=== PATIENT | female | born 1980 | race Caucasian/White ===

== ENCOUNTER 2016-11-30 12:28 | Outpatient (CLI) | payer MEDICARE, MEDICAID | END 2016-11-30 12:29 | disposition home or self-care (01) | DX: Z01.812 Encounter for preprocedural laboratory examination (principal) ==

== ENCOUNTER 2016-12-02 09:04 | Day surgery (SDC) | payer MEDICARE, MEDICAID ==
--- NOTE | 2016-11-30 15:13 | PREOP HISTORY & PHYSICAL ---
DATE OF ADMISSION/SURGERY: 12/02/2016 IDENTIFICATION: A 36-year-old G2, P2-0-0-2. HISTORY OF PRESENT ILLNESS: The patient presents today to [facility] for her scheduled preoperative visit. The patient is anticipated to have a 12/02/2016 laparoscopic bilateral salpingectomy, as well as removal of her Nexplanon implant. I discussed with the patient the risks, benefits, alternatives, indications, and expectations of the aforementioned procedures. Included in the risks are hemorrhage, infection, inadvertent laceration, cauterization or ligation of adjacent intestines, bladder, and ureters. Furthermore, with this procedure she will be permanently sterilized. This procedure is not meant to be reversible. The patient understands that she has different options for control including control pill, Ortho Evra, and IUD. Finally, the patient understands that though this procedure makes her unable to have children, she will still need to use protection as she will be able to contract sexually transmitted diseases ,as this does not protect her against that. After all of her questions were answered to her satisfaction, she verbalizes her desire to proceed with surgery. Consent forms have been signed. The patient is currently doing well and denies any nausea, vomiting, fevers, chills, diarrhea or constipation. She recently got over an upper respiratory infection approximately 3-4 weeks ago. Today, she is accompanied by her good friend, Connie, with whom she lives with. The patient appears to be her surrogate mother. Connie has adopted 1 of the patient's children. PAST MEDICAL HISTORY 1. Bipolar disease. 2. Morbid obesity. 3. Asthma. 4. Headaches. PAST SURGICAL HISTORY 1. In 2007, laparoscopic cholecystectomy. 2. Left shoulder surgery. ALLERGIES: NO KNOWN DRUG ALLERGIES. MEDICATIONS 1. [place] 300 mg, 2 tabs p.o. q.a.m. and 1 tab p.o. at bedtime. 2. Omeprazole 40 mg p.r.n. 3. Propranolol 40 mg 1 tab p.o. b.i.d. p.r.n. headaches. 4. Naproxen 500 mg 1 tab p.o. p.r.n. headaches. SOCIAL HISTORY: The patient lives with Connie and Connie's and adopted child. PAST OBSTETRICAL HISTORY: Two term spontaneous vaginal deliveries. PAST GYNECOLOGICAL HISTORY: All Pap smears have been within normal limits. She denies any sexually transmitted diseases. FAMILY HISTORY: Her mother of breast cancer when the patient was 12 years of age. REVIEW OF SYSTEMS: Negative unless otherwise stated. OBJECTIVE VITAL SIGNS: Weight is 297 pounds, height is 65-1/2 inches, BMI 48.7, blood pressure 142/82. GENERAL: The patient is an obese female in no apparent distress. She is alert and oriented x3. The patient seems almost child-like, but she is very pleasant. HEENT: Within normal limits. She does wear glasses. She has poor dentition. CARDIOVASCULAR: Rate is regular, no murmurs or rubs. PULMONARY: Lungs clear to auscultation bilaterally. ABDOMEN: Obese but soft and nontender. No masses, rebound, rigidity, or guarding. DERM: The patient has multiple healing skin lesions, which look like she has been picking in the areas of folliculitis that she may have. ASSESSMENT 1. A 36-year-old G2, P2-0-0-2. 2. Desires permanent sterilization. 3. Desires removal of her Nexplanon subdermal contraception. PLAN 1. Get a beta hCG right now to confirm a nonpregnancy state. 2. I have counseled her to take 1 gram of Tylenol 2 hours prior to her procedure with a sip of water. She has also been instructed to take her lithium at that time. 3. Anticipate giving her Celebrex in ambulatory surgery just prior to the procedure, in order to minimize postoperative pain. 4. The patient has been given a prescription for ibuprofen, as well as Vicodin for postoperative pain control. 5. The patient is to see me at [facility] in 2 weeks for routine postoperative visit. JOB #: [id number] EXT JOB #:[id number] MIGUE
[2016-12-02] MEDS: LACTATED RINGERS 1,000 ML IV ONE (09:15)
[2016-12-02 09:31] LABS: HCG UR QUAL NEGATIVE
[2016-12-02] MEDS ORDERED: MIDAZOLAM 2 MG/2 ML VIAL IVP ONE (10:15)
[2016-12-02] MEDS ORDERED: ROCURONIUM 50 MG/5 ML VIAL IVP ONE (10:15)
[2016-12-02] MEDS ORDERED: KETOROLAC 30 MG/ML VIAL IVP ONE (10:15)
[2016-12-02] MEDS ORDERED: GLYCOPYRROLATE 1 MG/5 ML VIAL IVP ONE (10:15)
[2016-12-02] MEDS ORDERED: fentaNYL 100 MCG/2 ML VIAL IVP ONE (10:15)
[2016-12-02] MEDS ORDERED: ALBUTEROL 6.7 GM INHALER INH ONE (10:15)
[2016-12-02] MEDS ORDERED: NEOSTIGMINE 1 MG/1 ML 10 ML MDV IVP ONE (10:15)
[2016-12-02] MEDS ORDERED: LIDOCAINE-MPF 2% 5 ML VIAL IM ONE (10:15)
[2016-12-02] MEDS ORDERED: SUCCINYLCHOLINE 200 MG/10 ML VIAL IVP ONE (10:15)
[2016-12-02] MEDS ORDERED: ONDANSETRON 4 MG/2 ML VIAL IVP ONE (10:15)
[2016-12-02] MEDS ORDERED: PROPOFOL 200 MG/20 ML VIAL IVP ONE (10:15)
[2016-12-02] MEDS ORDERED: DEXAMETHASONE 4 MG/ML VIAL IVP ONE (10:15)
[2016-12-02] MEDS: LIDOCAINE 1%-EPI 1:100000 30 ML MDV SUBQ ONE ×2 (10:30)
[2016-12-02] MEDS: LORazepam 2 MG/ML SYRINGE ONE (11:35)
--- NOTE | 2016-12-02 11:35 | PROVIDER PROGRESS NOTE ---
Surgery Post-Op - General Procedure Date: 12/02/16 Pre-Op Diagnosis: Desired permanent sterilization Desired removal of Nexplanon Operative Procedure: 1. Laparoscopic bilateral salpingectomy 2. Removal of Nexplanon Post-Op Diagnosis: Desired permanent sterilization Desired removal of Nexplanon - Procedure Note Anesthesia Technique: Primary Surgeon: Kali Pathology: Bilateral fallopian tubes Nexplanon Estimated Blood Loss (in cc): 10 Complications: None - Other Other Information/Narrative: Date of Operation: 12/02/2016 Surgeon: Jesús Bass DO, FACOG Educational Therapy Teacher: None Pattern Technician: Dale Quiñones CRNA Anesthesia: GET Pre-op Dx: 1. 34 yo 2. Desired permanent sterilization 3. Desired removal of Nexplanon Post-op Dx: 1. 34 yo 2. Desired permanent sterilization 3. Desired removal of Nexplanon Procedure: 1. Laparoscopic bilateral salpingectomy 2. Lysis of adhesions 3. Removal of Nexplanon Findings: 1. Normal uterus, fallopian tubes and ovaries 2. Adhesion of omentum to lower left anterior uterus 3. Nexplanon in right upper inner arm Specimens: 1. Bilateral fallopian tubes 2. Nexplanon Drains: None EBL: 10 cc Complications: None
[2016-12-02] MEDS: HYDROcod/ACETAM 5/325 MG TABLET ONE (12:44)
[2016-12-02 13:20] VITALS: BP 143/85
--- NOTE | 2016-12-02 16:19 | OPERATIVE REPORT ---
DATE OF SURGERY: 12/02/2016 00:00:00 PREOPERATIVE DIAGNOSES 1. A 34-year-old G2, P2-0-0-2. 2. Desired permanent sterilization. 3. Desired removal of Nexplanon. POSTOPERATIVE DIAGNOSES 1. A 34-year-old G2, P2-0-0-2. 2. Desired permanent sterilization. 3. Desired removal of Nexplanon. NAME OF PROCEDURE 1. Laparoscopic bilateral salpingectomy. 2. Lysis of adhesions. 3. Removal of Nexplanon. SURGEON: Abena Bass DO ANESTHESIA: General endotracheal tube. SECURITIES SUPERVISOR: None. FRONT COUNTER ATTENDANT: Dale Quiñones CRNA FINDINGS 1. Normal uterus, fallopian tubes and ovaries. 2. Adhesion of the omentum to the lower anterior left uterus. 3. Nexplanon located in the right upper arm. SPECIMENS 1. Bilateral fallopian tubes. 2. Nexplanon. DRAINS: None. ESTIMATED BLOOD LOSS: 10 mL. COMPLICATIONS: None. BRIEF HISTORY: This is a patient at [facility] who presented to me with desired permanent sterilization. The patient cannot take care of children. Both of her children are not in her care and one is actually adopted by her best friend with whom she lives with. The patient has verbalized her desire for permanent sterilization. She understands that a different form of contraception is available to her including control pills, the Ortho Evra , the IUD and Depo-Provera. The patient understands this procedure is meant to be permanent and irreversible. Also, though she will be sterilized, she will still need to use precautions for preventing sexually transmitted diseases as this procedure does not prevent that. After the patient's questions were answered to her satisfaction, she verbalized her desire to proceed with surgery. The patient also decided that she would like her Nexplanon removed since she would be sterilized. OPERATION IN DETAIL: The patient was identified, consented and taken to the operating room where IV access was already in place. The patient was then given sequential compression devices, which were placed on her lower extremities and turned on. The patient was then given satisfactory general endotracheal tube anesthesia as per Dale Quiñones. The patient was then prepped and draped in normal sterile fashion in the supine position. A Sheriff catheter was placed in her bladder. Antibiotics were not indicated in this case. A timeout was performed, which correctly identified the patient, site of the procedures and then procedures themselves. Three laparoscopic port sites were first identified in the subumbilical fold, the left lower quadrant and the right lower quadrant. All 3 port sites were injected with 1% lidocaine. Three incisions of 5 mm length were made in the subumbilical fold in the lower quadrants 2 fingerbreadths superior and medial to the respective anterior superior iliac spines. As previously mentioned, these sites were injected with lidocaine for better control over postoperative pain. Entrance into the abdomen was first made at the subumbilical fold port site. With a 0 degree 5 mm camera and an Optiview trocar, entrance in the abdomen was obtained. No trauma to intraabdominal organs was noted. Next, CO2 gas was used to insufflate the abdomen in order to achieve pneumoperitoneum. The 2 other port sites were then placed under direct visualization of the camera. The laparoscope was then changed to a 30 degree 5 mm scope. Inspection of the pelvis was quite difficult given the patient's body habitus. Despite significant Trendelenburg, there was still very poor visualization of the lower pelvis. The right adnexa was first identified and followed out to its fimbriated end. The right fallopian tube was then excised using the LigaSure. Hemostasis was noted. In order to identify the left adnexa, it was discovered that there were significant adhesions between the omentum and the lower left anterior portion of the uterus. The LigaSure was used to lyse these adhesions. The left adnexa were identified, and the fallopian tube was followed out to its fimbriated end. In a similar fashion, the left fallopian tube was then excised with the LigaSure. Hemostasis was noted. At this point in time the laparoscopic portion of the procedure had been completed. All instruments were removed out of the abdomen after CO2 gas was allowed to escape into the abdomen. The three 5 mm ports were reapproximated with 4-0 Monocryl in a subcuticular fashion. Dermabond was placed on top of all 3 incision sites. Next, Nexplanon removal was addressed. The right upper inner arm was then palpated, and the Nexplanon was identified subdermally. The skin was then cleansed with povo-iodine, and the distal portion of the Nexplanon in the skin was then anesthetized with 1% lidocaine. A small incision was made in the skin, and the Nexplanon was then easily removed through this incision. Dermabond was placed on top of the incision, as well as a pressure dressing. The patient was taken back to recovery room in stable condition. She will be discharged to home later today after postoperative criteria are met. All sponge , lap and needle counts were correct x2 as per nurse report. The patient is expected to see me at [facility] in 2 weeks for routine postoperative examination. JOB #: [id number] EXT JOB #:[id number] MIGUE
== END 2016-12-02 09:05 | disposition home or self-care (01) ==
LOC: SDS 09:04
PROVIDERS: ATTEND Obstetrics & Gynecology
PROC: 0UN94ZZ Release Uterus, Percutaneous Endoscopic Approach (ICD-10-PCS; 2016-12-02)
PROC: 0HCCXZZ Extirpation of Matter from Left Upper Arm Skin, External Approach (ICD-10-PCS; 2016-12-02)
PROC: 0UB74ZZ Excision of Bilateral Fallopian Tubes, Percutaneous Endoscopic Approach (ICD-10-PCS; principal; 2016-12-02 10:20)
DX: Z30.2 Encounter for sterilization (principal); N99.4 Postprocedural pelvic peritoneal adhesions; Z96.89 Presence of other specified functional implants; F31.9 Bipolar disorder, unspecified; E66.01 Morbid (severe) obesity due to excess calories; Z68.41 Body mass index [BMI] 40.0-44.9, adult; R51 Headache; J45.909 Unspecified asthma, uncomplicated; Z80.3 Family history of malignant neoplasm of breast; L73.9 Follicular disorder, unspecified; K21.9 Gastro-esophageal reflux disease without esophagitis; Z32.02 Encounter for pregnancy test, result negative
CPT/HCPCS: 81025; 88302